=== PATIENT | female | born 1955 | race Caucasian/White ===

== ENCOUNTER → 2020-03-23 | Day surgery (SDC) | payer MEDICARE ==
[~2020-03-23] MED LIST: BETAPACE80 MG PO; CARDIZEM CD120 MG PO; ELIQUIS 5 MG TAB5 MG PO; FEMARA2.5 MG PO; HYGROTON TAB 2525 MG PO; LOVASTATIN40 MG PO; NORVASC5 MG PO; OMNICEF 300 MG300 MG PO; PRAVASTATIN SOD40 MG PO; PROAIR HFA8.5 GM INH; VITAMIN D21250 MCG PO
== END | disposition home or self-care (01) ==
LOC: OR 06:33
DX: D12.3 Benign neoplasm of transverse colon (principal); K63.5 Polyp of colon; K57.30 Diverticulosis of large intestine without perforation or abscess without bleeding; M81.0 Age-related osteoporosis without current pathological fracture; E78.5 Hyperlipidemia, unspecified; I10 Essential (primary) hypertension; J45.20 Mild intermittent asthma, uncomplicated; M85.80 Other specified disorders of bone density and structure, unspecified site; I48.0 Paroxysmal atrial fibrillation; E55.9 Vitamin D deficiency, unspecified; C50.919 Malignant neoplasm of unspecified site of unspecified female breast; Z79.811 Long term (current) use of aromatase inhibitors; Z90.10 Acquired absence of unspecified breast and nipple; Z79.01 Long term (current) use of anticoagulants; Z79.899 Other long term (current) drug therapy; Z88.6 Allergy status to analgesic agent; Z88.2 Allergy status to sulfonamides
CPT/HCPCS: J2001; J2704; J7030

== ENCOUNTER → 2021-01-24 | Outpatient (CLI) | payer MEDICARE ==
[~2021-01-24] VITALS: Ht 160 cm; Wt 60.3 kg
== END ==
LOC: OPSV 01-17 11:00
DX: M81.0 Age-related osteoporosis without current pathological fracture (principal)
CPT/HCPCS: 96365; J3489